=== PATIENT | male | born 1970 | race Caucasian/White ===

== ENCOUNTER 2021-09-08 00:40 | Inpatient (IN) | payer SELFPAY ==
[2021-09-09] MEDS ORDERED: Morphine 4 MG/ML VIAL SLOW IVP PRN (03:03)
[2021-09-09] MEDS ORDERED: Ondansetron PF 4 MG/2 ML Vial IVP PRN (03:04)
[2021-09-09 03:06] VITALS: BMI 21.1
[2021-09-09] MEDS: Sodium Chloride 0.9% 1,000 ML IV SCH ×2 (03:32→12:35)
[2021-09-09] MEDS: Piperacillin/Tazobactam 3.375 GM in Sodium Chloride 0.9% 100 ML IVPB SCH ×2 (03:33→12:35)
[2021-09-09 05:21] LABS: SARS-CoV-2 NAA Rapid Test Not Detected (NotDetected)
[2021-09-09 06:05] LABS: #Monocytes 1.4 thou/uL (0.11-0.59); %Basophils 0.2 % (0.0-1.0); %Eosinophils 0.2 % (0.0-10.0); %Lymphocytes 5.3 % (21.0-51.0); %Neutrophils 87.3 % (42.0-75.0); Hemoglobin 14.1 g/dL (14.0-18.0); Mean Corpuscular HGB CONC 32.6 g/dL (32.0-36.0); Mean Corpuscular Hemoglobin 31.9 pg (27.0-31.0); Mean Corpuscular Volume 97.6 fL (78.0-98.0); Mean Platelet Volume 7.9 fL (7.4-10.4); Platelet Count 214 thou/uL (130-400); RBC Distribution Width 11.4 % (11.5-14.5); Red Blood Cell (RBC) Count 4.44 mill/uL (4.70-6.10); White Blood Cell (WBC) Count 19.4 thou/uL (4.8-10.8)
[2021-09-09 06:24] LABS: Anion Gap 13 mmol/L (10-20); BUN (Urea Nitrogen) 9 mg/dL (8.9-20.6); Calc. Creatinine Clearance 101 mL/min (70-130); Calcium 8.8 mg/dL (7.8-10.44); Carbon Dioxide 24 mmol/L (22-29); Chloride 103 mmol/L (98-107); Glucose 100 mg/dL (70-105); Potassium 3.9 mmol/L (3.5-5.1); Sodium 136 mmol/L (136-145)
[2021-09-09] MEDS ORDERED: Sodium Chloride 0.9% 100 ML ONE (12:14)
[2021-09-09] MEDS ORDERED: Piperacillin/Tazobactam 3.375 GM VIAL ONE (12:14)
[2021-09-09] MEDS ORDERED: Bupivacaine 0.25% 10 ML VIAL ONE (14:19)
[2021-09-09] MEDS ORDERED: Lidocaine 1% w/Epinephrine 1:100K 30 ML VIAL ONE (14:19)
[2021-09-09] MEDS ORDERED: Fentanyl 100 MCG/2 ML VIAL ONE (14:30)
[2021-09-09] MEDS ORDERED: PHENYLEPHRINE-NS 100 MCG/ML 10 ML SYRINGE ONE ×3 (14:51→16:09)
[2021-09-09] MEDS ORDERED: Dexamethasone 20 MG/5 ML VIAL ONE (14:51)
[2021-09-09] MEDS ORDERED: Metoclopramide HCl 10 MG/2 ML VIAL ONE (14:51)
[2021-09-09] MEDS ORDERED: Rocuronium Bromide 10 MG/ML (10ML VIAL) ONE (14:51)
[2021-09-09] MEDS ORDERED: ePHEDrine 50 MG/ML VIAL ONE (14:51)
[2021-09-09] MEDS ORDERED: PROPOFOL 200 MG/20 ML VIAL ONE (14:51)
[2021-09-09] MEDS ORDERED: Lidocaine 1% PF 5 ML VIAL ONE (14:51)
[2021-09-09] MEDS ORDERED: Ondansetron PF 4 MG/2 ML Vial ONE (14:51)
[2021-09-09] MEDS ORDERED: Ketamine 50 MG/ML (10ML VIAL) ONE (15:07)
[2021-09-09] MEDS ORDERED: SUGAMMADEX SODIUM 200 MG/2 ML VIAL ONE (15:12)
[2021-09-09] MEDS ORDERED: Phenylephrine 10 MG/ML VIAL ONE (16:07)
[2021-09-09] MEDS ORDERED: HYDROmorphone 2 MG/ML VIAL SLOW IVP PRN (16:28)
[2021-09-09] MEDS ORDERED: Promethazine HCl 25 MG/ML VIAL IVPB PRN (16:28)
[2021-09-09] MEDS ORDERED: Ondansetron HCl/PF 4 MG/2 ML Vial IVP PRN (16:28)
[2021-09-09] MEDS ORDERED: Promethazine HCl 25 MG/ML VIAL IM PRN (16:28)
[2021-09-09] MEDS ORDERED: Dextrose 50% Abboject 50 ML SYRINGE SLOW IVP PRN (16:35)
[2021-09-09] MEDS ORDERED: HYDROcodone/Acetaminophen 10/325 mg Tablet PO PRN (16:35)
[2021-09-09] MEDS ORDERED: traMADol HCl 50 MG TAB PO PRN (16:35)
[2021-09-09] MEDS ORDERED: Dextrose 5% in Water 1,000 ML IV PRN (16:35)
[2021-09-09] MEDS ORDERED: Acetaminophen 325 MG TAB PO PRN (16:35)
[2021-09-09 20:51] VITALS: BP 124/75; TEMP 97.8
== END 2021-09-09 20:10 | disposition home or self-care (01) | DRG 395 ==
LOC: SJJU 23:10 → OBSVTOIN 09-09 16:33
PROVIDERS: ADMIT Specialist; ATTEND Specialist
PROC: 0DCP8ZZ Extirpation of Matter from Rectum, Via Natural or Artificial Opening Endoscopic (ICD-10-PCS; principal; 2021-09-09)
DX: T18.5XXA Foreign body in anus and rectum, initial encounter (principal); Z20.822 Contact with and (suspected) exposure to COVID-19; Z98.890 Other specified postprocedural states
CPT/HCPCS: 36415; 74018; 80048; 85025; J1100; J2370; J2405; J2543; J2704; J2765; J3010; J3490; J7050; S0020; U0002